=== PATIENT | female | born 1995 | race Caucasian/White ===

== ENCOUNTER 2017-08-14 09:00 | Day surgery (SDC) | payer OTHER ==
[2017-08-14] MEDS ORDERED: MORPHINE SULFATE 10 MG/ML INJ ONE (10:52)
[2017-08-14] MEDS ORDERED: DEXAMETHASONE SOD PHOS INJ 10 MG/1 ML VIAL ONE (10:52)
[2017-08-14] MEDS ORDERED: FENTANYL CITRATE INJ/PF 100 MCG/2 ML AMPUL ONE (10:52)
[2017-08-14] MEDS ORDERED: ONDANSETRON HCL INJ/PF 4 MG/2 ML SDV ONE (10:52)
[2017-08-14] MEDS ORDERED: PROPOFOL INJ 200 MG/20 ML VIAL IV ONE (10:52)
[2017-08-14] MEDS ORDERED: SUCCINYLCHOLINE CHLORIDE INJ 200 MG/10 ML VIAL ONE (10:52)
[2017-08-14] MEDS ORDERED: LIDOCAINE 2% INJ-PF (20 MG/ML) 10 ML AMPUL ONE (10:53)
[2017-08-14] MEDS ORDERED: BUPIVACAINE HCL 0.5%-EPI 1:200000 INJ/PF 30 ML VIAL ONE (10:55)
[2017-08-14] MEDS ORDERED: NORMAL SALINE INJ/PF 0.9% 10 ML SDV ONE (10:57)
[2017-08-14] MEDS ORDERED: ACETAMINOPHEN 100 ML IV ONE (11:11)
[2017-08-14] MEDS ORDERED: OXYCODONE-ACETAMINOPHEN 5-325 MG TABLET ONE (11:59)
--- NOTE | 2017-08-15 13:21 | SURGICARE OPERATIVE REPORT E ---
[facility] Operative Report NAME: RAYMON QUEZADA AGE: 22Y DATE OF SURGERY: 08/14/2017 PREOPERATIVE DIAGNOSIS: 1. CHRONIC TONSILLITIS. 2. TONSILLAR HYPERTROPHY. POSTOPERATIVE DIAGNOSIS: 1. CHRONIC TONSILLITIS. 2. TONSILLAR HYPERTROPHY. OPERATION: Bilateral tonsillectomy, age greater than 12. SURGEON: CINTHIA BELL D.O. ANESTHESIA: General endotracheal tube. ANESTHESIA STAFF: Sujata PERKINS ESTIMATED BLOOD LOSS: 5 mL FLUIDS: COMPLICATIONS: None. DRAINS: None. SPONGE COUNT: Verified. MATERIALS FORWARDED SPECIMEN: Left and right tonsillar tissue. FINDINGS: 1. The tonsils were noted to be 2 to 3+ in size, were cryptic in nature, and were with significant tonsillar debris present bilateral. 2. The soft palatal tissues were redundant in nature, and the uvula was unremarkable in appearance. INDICATION: This is a 22-year-old white female patient who was seen and evaluated in the [facility]. The patient had been referred for, and she complained of, a history of chronic tonsillitis symptoms over the years with history consistent with keratosis pharyngeus. Clinically the patient was also noted to have tonsillar hypertrophy. She has a desire to undergo tonsil surgery to move beyond her chronic tonsil problems. After extensive discussion with the patient, recommend and plan were made to proceed with tonsil surgery / tonsillectomy. The procedure and all of its risks and complications were all discussed in detail with the patient. She voiced an understanding of the described surgical plan, agreed to proceed, and consent was obtained. PROCEDURE: The patient was taken to the main operating room and placed on the operating room table in the supine position. Appropriate monitors were placed. Using mask and IV access, general anesthesia was induced. The patient was next transorally intubated without difficulty. The patient was rotated 90 degrees and positioned for tonsil surgery. The patient's lips, teeth, tongue and inside of the mouth were inspected and noted to be without defects. There was a mouth gag inserted. It was opened, and the patient was placed into suspension. There was a soft catheter placed through the patient's nose that was used to suspend the soft palate. Findings are as noted above. At this point, the plasma J-hook device was used to dissect and remove tonsillar tissue on each side. This device was also used to provide adequate hemostasis. Saline irrigation was performed and suctioned. There was adequate hemostasis noted. The soft catheter was next released and removed from the patient's nose. The mouth gag was removed from the patient's mouth without difficulty. There was no damage to the lips, teeth, tongue, gums, or inside of the mouth. The patient was then returned to the anesthesia staff and was allowed to emerge from general anesthesia. The patient was extubated in the main operating room and was then transported to the post-anesthesia recovery unit in stable condition. There were no complications. . DICTATING PHYSICIAN: CINTHIA BELL D.O. [id number] [facility]#: [id number] 2019 ID: [id number] JOB#: [id number] ACCT: [id number] cc:CINTHIA BELL D.O. >
== END 2017-08-14 12:47 | disposition home or self-care (01) ==
LOC: SC 09:00
PROVIDERS: ATTEND Otolaryngology
PROC: 0CTPXZZ Resection of Tonsils, External Approach (ICD-10-PCS; principal; 2017-08-14 10:15)
DX: J35.01 Chronic tonsillitis (principal); A42.89 Other forms of actinomycosis; H61.23 Impacted cerumen, bilateral; R42 Dizziness and giddiness; J30.2 Other seasonal allergic rhinitis; E03.9 Hypothyroidism, unspecified
CPT/HCPCS: 36415; 88304 ×2; 42826; J3490 ×3; J2270; J0330; J2405; J2704; J1100; J0131; 170; J3010

== ENCOUNTER 2017-08-16 13:42 | Emergency (ER) | payer OTHER ==
--- NOTE | 2017-08-16 15:45 | ER Document Report ---
ED Medical Screen (RME) - General Chief Complaint: Post Surgical Bleeding Stated Complaint: POST SURGICAL PROBLEMS Time Seen by Provider: 08/16/17 15:41 Notes: Pt is a 22 yo female who had a T&A [address] Malone at [facility]. She was having bleeding last night and it has resolved. Taking Percocet for pain. PE: B/L posterior phayrngeal post-surgical scars. I have greeted and performed a rapid initial assessment of this patient. A comprehensive ED assessment and evaluation of the patient, analysis of test results and completion of the medical decision making process will be conducted by additional ED providers. TRAVEL OUTSIDE OF THE [place] IN LAST 30 DAYS: No - Related Data Allergies/Adverse Reactions: No Known Allergies Allergy (Verified 08/16/17 13:43) Past Medical History - Past Medical History Cardiac Medical History: Denies: Hx Heart Attack, Hx Hypertension Pulmonary Medical History: Denies: Hx Asthma Neurological Medical History: Denies: Hx Cerebrovascular Accident, Hx Seizures GI Medical History: Denies: Hx Hepatitis, Hx Hiatal Hernia, Hx Ulcer Infectious Medical History: Denies: Hx Hepatitis Past Surgical History: Denies: Hx Hysterectomy, Hx Mastectomy, Hx Open Heart Surgery, Hx Pacemaker Physical Exam - Vital signs Vitals: Temp Pulse Resp BP Pulse Ox 98.0 F 77 12 104/65 99 08/16/17 14:03 08/16/17 14:03 08/16/17 14:03 08/16/17 14:03 08/16/17 14:03 Course - Vital Signs Vital signs: Temp Pulse Resp BP Pulse Ox 98.0 F 77 12 104/65 99 08/16/17 14:03 08/16/17 14:03 08/16/17 14:03 08/16/17 14:03 08/16/17 14:03
[2017-08-16 16:51] LABS: ABSOLUTE EOSINOPHILS # (AUTO) 0.3 10^3/uL (0.0-0.6); ABSOLUTE LYMPHOCYTES (AUTO) 2.6 10^3/uL (0.5-4.7); ABSOLUTE MONOCYTES (AUTO) 1.1 10^3/uL (0.1-1.4); ABSOLUTE NEUT (AUTO) 7.8 10^3/uL (1.7-8.2); BASOPHILS % (AUTO) 0.3 % (0-2); EOSINOPHILS % (AUTO) 2.3 % (0-6); HEMATOCRIT 38.3 % (36.0-47.0); HEMOGLOBIN 13.1 g/dL (12.0-15.5); LYMPHOCYTES % (AUTO) 21.9 % (13-45); MEAN CORPUSCULAR HEMOGLOBIN 30.4 pg (27.0-33.4); MEAN CORPUSCULAR HGB CONC 34.3 g/dL (32.0-36.0); MEAN CORPUSCULAR VOLUME 89 fl (80-97); MONOCYTES % (AUTO) 9.3 % (3-13); PLATELET COUNT 422 10^3/uL (150-450); RED BLOOD COUNT 4.32 10^6/uL (3.72-5.28); RED CELL DISTRIBUTION WIDTH 12.6 % (11.5-14.0); SEGMENTED NEUTROPHILS % (AUTO) 66.2 % (42-78); TOTAL CELLS COUNTED % (AUTO) 100 %; WHITE BLOOD COUNT 11.8 10^3/uL (4.0-10.5)
[2017-08-16] MEDS ORDERED: NORMAL SALINE 1000 ML 1,000 ML IV ONE ×2 (18:54→20:23)
[2017-08-16] MEDS ORDERED: ONDANSETRON HCL INJ/PF 4 MG/2 ML SDV IV ONE (19:11)
[2017-08-16] MEDS ORDERED: FENTANYL CITRATE INJ/PF 100 MCG/2 ML AMPUL IV ONE ×3 (19:11→21:46)
--- NOTE | 2017-08-16 19:11 | ER Document Report ---
ED ENT - General Mode of Arrival: Ambulatory Information source: Patient TRAVEL OUTSIDE OF THE [place] IN LAST 30 DAYS: No - HPI Patient complains to provider of: Throat problem <JORDAN RORDIGUEZ - Last Filed: 08/16/17 19:40> <CARLENE OLIVERA - Last Filed: 08/16/17 21:54> - General Chief Complaint: Post Surgical Bleeding Stated Complaint: POST SURGICAL PROBLEMS Time Seen by Provider: 08/16/17 15:41 Notes: Patient is a 22-year-old female who presents to the emergency department today with complaints of throat pain. Patient had a tonsil and adenoidectomy [address] Richardson. Patient complains of throat pain with associated nausea and vomiting. Patient states she has seen blood streaks in her vomit. (JORDAN RODRIGUEZ) - Related Data Allergies/Adverse Reactions: No Known Allergies Allergy (Verified 08/16/17 13:43) Home Medications: Current Home Medications Butalbital/Aspirin/Caffeine [Fiorinal 50-325-40 mg Capsule] 1 cap PO Q4HP PRN [History] Fluticasone Propionate [Flonase Nasal [place] 50 Mcg/[place] 16 gm] 1 spray NASL Q12 08/16/17 [History] Levothyroxine Sodium [Synthroid 0.025 mg Tablet] 25 mcg PO Q6AM 08/16/17 [ History] Loratadine [Claritin 10 mg Tablet] 10 mg PO DAILY 08/16/17 [History] Magnesium Oxide [Mag-Ox 400 mg Tablet] 400 mg PO DAILY 08/16/17 [History] Norethindrone-E.estradiol-Iron [Microgestin Fe 1-20 Tablet] 1 tab PO DAILY 08/16 [History] Past Medical History - General Information source: Patient - Social History Smoking Status: Never Smoker Cigarette use (# per day): No Frequency of alcohol use: None Drug Abuse: None Lives with: Family Family History: Reviewed & Not Pertinent Patient has suicidal ideation: No Patient has homicidal ideation: No Past Surgical History: Reports: Hx Tonsillectomy <JORDAN RODRIGUEZ - Last Filed: 08/16/17 19:40> Review of Systems - Review of Systems Constitutional: No symptoms reported EENT: See HPI, Throat pain - w/ bleeding at surgical site Cardiovascular: No symptoms reported Respiratory: No symptoms reported Gastrointestinal: See HPI, Nausea, Vomiting Genitourinary: No symptoms reported Female Genitourinary: No symptoms reported Musculoskeletal: No symptoms reported Skin: No symptoms reported Hematologic/Lymphatic: No symptoms reported Neurological/Psychological: No symptoms reported -: Yes All other systems reviewed and negative <JORDAN RODRIGUEZ - Last Filed: 08/16/17 19:40> Physical Exam <JORDAN RODRIGUEZ - Last Filed: 08/16/17 19:40> <CARLENE OLIVERA - Last Filed: 08/16/17 21:54> - Vital signs Vitals: Temp Pulse Resp BP Pulse Ox 98.0 F 77 12 104/65 99 08/16/17 14:03 08/16/17 14:03 08/16/17 14:03 08/16/17 14:03 08/16/17 14:03 - Notes Notes: Physical Exam: General: Alert, appears uncomfortable. HEENT: Normocephalic. Atraumatic. PERRL. Extraocular movements intact. Oropharynx clear. Eschars at surgical site, no active bleeding. Dry mucous membranes. Neck: Supple. Non-tender. Respiratory: No respiratory distress. Clear and equal breath sounds bilaterally. Cardiovascular: Regular rate and rhythm. Abdominal: Normal Inspection. Non-tender. No distension. Normal Bowel Sounds. Back: Non-tender. No deformity or step off. Extremities: Moves all four extremities. Upper extremities: Normal inspection. Normal ROM. Lower extremities: Normal inspection. No edema. Normal ROM. Neurological: Normal cognition. AAOx4. Normal speech. Psychological: Normal affect. Normal Mood. Skin: Warm. Dry. Normal color. (JORDAN RODRIGUEZ) Course - Laboratory Result Diagrams: 08/16/17 16:24 <JORDAN RODRIGUEZ - Last Filed: 08/16/17 19:40> - Laboratory Result Diagrams: 08/16/17 16:24 08/16/17 16:24 - Consults Dr. Malone Time consulted: 20:53 - Give Zofran and Decadron. Will follow-up in office Consulted provider: follow-up in office <CARLENE OLIVERA - Last Filed: 08/16/17 21:54> - Re-evaluation Re-evalutation: 08/16/17 21:52 Patient appears clinically dehydrated. She has been given fluids, pain medication, nausea medicine. She is feeling better. She still having pain. She is advised to use lidocaine spray which she has at home every 2 hours. She will be given a prescription for Decadron for the next 2 days. She will also be given a Zofran to go pack and a prescription for Zofran at home. Patient does not have any bleeding. Hemoglobin is stable. Vitals are improved. Patient was discussed with Dr. Malone and is to follow-up in the office. Stable for discharge. Understands and agrees with plan. Return if any worsening or concerning symptoms. (CARLENE OLIVERA) - Vital Signs Vital signs: Temp Pulse Resp BP Pulse Ox 98.0 F 83 16 99/58 L 99 08/16/17 14:03 08/16/17 15:45 08/16/17 15:45 08/16/17 15:45 08/16/17 15:45 - Laboratory Laboratory results interpreted by me: 08/16/17 08/16/17 08/16/17 16:24 16:24 19:26 WBC 11.8 H Glucose 74 L Urine Ketones 20 H Urine Blood SMALL H Ur Leukocyte Esterase SMALL H Discharge <JORDAN RODRIGUEZ - Last Filed: 08/16/17 19:40> <CARLENE OLIVERA - Last Filed: 08/16/17 21:54> - Discharge Clinical Impression: Post-op pain, Dehydration, Nausea Condition: Stable Disposition: HOME, SELF-CARE Instructions: Dehydration ([facility]) Additional Instructions: Please take Zofran as needed for nausea. Please make sure you are using lidocaine spray every 2 hours. Please take prescriptions as needed. Please make sure you are staying hydrated. Prescriptions: Ondansetron [Zofran Odt 4 mg Tablet] 1 tab PO Q6HP PRN #15 tab.rapdis PRN Reason: For Nausea/Vomiting Dexamethasone [Decadron 4 Mg Tablet] 8 mg PO DAILY #4 tablet Referrals: [facility] [Primary Care Provider] - Follow up as needed Scribe Attestation: 08/16/17 21:54 I personally performed the services described in the documentation, reviewed and edited the documentation which was dictated to the scribe in my presence, and it accurately records my words and actions. (CARLENE OLIVERA) Scribe Documentation - Scribe Written by Yahaira:: Yahaira Brandon, 08/16/2017 1941 acting as scribe for :: Shameka <JORDAN RODRIGUEZ - Last Filed: 08/16/17 19:40>
[2017-08-16 19:58] LABS: APPEARANCE,URINE SLIGHTLY-CLOUDY; BILIRUBIN,URINE NEGATIVE (NEGATIVE); COLOR,URINE STRAW; GLUCOSE, URINE NEGATIVE (NEGATIVE); KETONES,URINE 20 mg/dL (NEGATIVE); LEUKOCYTE ESTERASE,URINE SMALL (NEGATIVE); NITRITE,URINE NEGATIVE (NEGATIVE); PROTEIN,URINE NEGATIVE (NEGATIVE); URINE SPECIFIC GRAVITY 1.008; UROBILINOGEN,URINE NEGATIVE mg/dL (<2.0)
[2017-08-16 20:28] LABS: ANION GAP 11 (5-19); BLOOD UREA NITROGEN 10 mg/dL (7-20); CALCIUM 10.1 mg/dL (8.4-10.2); CARBON DIOXIDE 27 mmol/L (22-30); CHLORIDE 102 mmol/L (98-107); GLUCOSE 74 mg/dL (75-110); POTASSIUM 4.6 mmol/L (3.6-5.0); SODIUM 140.1 mmol/L (137-145)
[2017-08-16] MEDS ORDERED: DEXAMETHASONE SOD PHOS INJ 10 MG/1 ML VIAL IV ONE (20:52)
[2017-08-16] MEDS ORDERED: LIDOCAINE 4% TOPICAL SOLN 50 ML TOP ONE (21:14)
[2017-08-16] MEDS ORDERED: METOCLOPRAMIDE HCL INJ/PF 10 MG/2 ML SDV IV ONE (21:46)
[2017-08-16] MEDS ORDERED: LIDOCAINE 2% VISCOUS SOLN 20 ML UDCUP PO ONE (21:47)
[2017-08-16] MEDS ORDERED: ONDANSETRON ODT 4 MG TAB (6 TAB/ER DISP) PO PRN (21:47)
[2017-08-16 22:27] VITALS: BP 103/73
== END 2017-08-16 22:20 | disposition home or self-care (01) ==
LOC: ER 13:42
DX: G89.18 Other acute postprocedural pain (principal); R07.0 Pain in throat; K92.0 Hematemesis; E86.0 Dehydration; Z90.89 Acquired absence of other organs
CPT/HCPCS: 96376; 99283; 96361; 96374; 96375; 36415; 85025; 80048; 81001; J3010; J3490; J2765; J2405; J7030; J1100